=== PATIENT | male | born 1995 | race Caucasian/White ===

== ENCOUNTER 2018-03-03 20:00 | Emergency (ER) | payer MEDICAID ==
[2018-03-03 20:00] VITALS: BMI 27.4
--- NOTE | 2018-03-03 21:42 | ED PDOC ---
Arrival/HPI <Mane Aleman - Last Filed: 03/03/18 21:46> - General Historian: Patient - History of Present Illness Time/Duration: > week Symptom Onset: Gradual Symptom Course: Worsening Quality: Throbbing <Nicolle Cook - Last Filed: 03/03/18 22:17> - General Chief Complaint: Lower Extremity Problem/Injury Time Seen by Provider: 03/03/18 20:42 - History of Present Illness Narrative History of Present Illness (Text): 03/03/18 22:03 22-year-old male presents today with a 2 week history of left great toe pain/ ingrown toenail. Patient states he has a history of recurrent ingrown toenails on this left great toe and states he has had a foot doctor cut the nail twice. Patient denies fevers or chills. He denies trauma or injury. He denies numbness weakness or tingling in the extremity. He is complaining of pain along the lateral aspect/lateral cuticle of the toe. No medications have been taken for pain at home. Patient states she tried to get an appointment with his foot doctor but they did not have an appointment until next Sunday. No other complaints (Nicolle Cook) Past Medical History - Provider Review Nursing Documentation Reviewed: Yes - Travel History Have you recently traveled outside [place] w/in the past 3 mons?: No - Past History Past History: No Previous - Infectious Disease Hx of Infectious Diseases: None - Cardiac Hx Cardiac Disorders: No - Psychiatric Hx Depression: Yes Hx Substance Use: No Other/Comment: ADHD - Past Surgical History Past Surgical History: No Previous - Anesthesia Hx Anesthesia: No - Suicidal Assessment Feels Threatened In Home Enviroment: No <Nicolle Cook - Last Filed: 03/03/18 22:17> Family/Social History - Physician Review Nursing Documentation Reviewed: Yes Family/Social History: Unknown Family HX Smoking Status: Unknown If Ever Smoked Hx Alcohol Use: No Hx Substance Use: No <Nicolle Cook - Last Filed: 03/03/18 22:17> Allergies/Home Meds <Mane Aleman - Last Filed: 03/03/18 21:46> <Nicolle Cook - Last Filed: 03/03/18 22:17> Allergies/Adverse Reactions: Allergies Sulfa (Sulfonamide Antibiotics) Allergy (Verified 03/03/18 20:23) RASH Home Medications: Home Meds Medication Instructions Recorded Confirmed Lisdexamfetamine Dimesylate 50 mg PO DAILY 09/21/13 03/03/18 [Vyvanse] ARIPiprazole [Abilify] 10 mg PO DAILY 03/03/18 03/03/18 Escitalopram Oxalate [Lexapro] 5 mg PO DAILY 03/03/18 03/03/18 Review of Systems - Review of Systems Constitutional: absent: Fatigue, Fevers Respiratory: absent: SOB, Cough Cardiovascular: absent: Chest Pain, Palpitations Gastrointestinal: absent: Abdominal Pain, Nausea, Vomiting Musculoskeletal: Arthralgias Neurological: absent: Headache, Dizziness Psychiatric: absent: Anxiety, Depression <Nicolle Cook - Last Filed: 03/03/18 22:17> Physical Exam Vital Signs Reviewed: Yes Temperature: Afebrile Blood Pressure: Normal Pulse: Regular Respiratory Rate: Normal Appearance: Positive for: Well-Appearing, Non-Toxic, Comfortable Pain Distress: None Mental Status: Positive for: Alert and Oriented X 3 - Systems Exam Head: Present: Atraumatic Neck: Present: Normal Range of Motion Respiratory/Chest: Present: Clear to Auscultation Cardiovascular: Present: Regular Rate and Rhythm Lower Extremity: Present: Normal ROM, Tenderness (left great toe; + edema noted to the lateral cuticle with small amount of purulent discharge noted; no surrounding erythema; full rom of toe. sensation and distal pulses intact. cap refill <2. ), Swelling, Neurovascularly Intact, Capillary Refill < 2 s. No: Erythema, Deformity Neurological: Present: GCS=15, Speech Normal Skin: Present: Warm, Dry, Normal Color Psychiatric: Present: Alert, Oriented x 3 <Nicolle Cook - Last Filed: 03/03/18 22:17> Vital Signs Temp Pulse Resp BP Pulse Ox 03/03/18 20:18 98.5 F 94 H 18 150/85 98 03/03/18 20:00 98.5 F 94 H 18 150/85 98 Medical Decision Making <Mane Aleman - Last Filed: 03/03/18 21:46> <Nicolle Cook - Last Filed: 03/03/18 22:17> ED Course and Treatment: 03/03/18 22:15 22-year-old male with a 2 week history of left great toe ingrown toenail. Patient given Keflex by mouth and Motrin for pain. Patient was advised follow-up with the canine deputy within the next 2 days. He was advised warm soaks. He was advised to apply she will antibiotics ointment to the affected area. Patient was advised immediate return if symptoms worsen persist or if new concerning symptoms develop Patient verbalizes understanding of discharge instructions and need for immediate followup. all aspects of this case were discussed the attending of record. Impression:ingrown toe nail Motrin every 6 hours as needed for pain Keflex one capsule 4 times daily 7 days Warm soaks frequently Follow-up with the canine deputy within the next 2 days Follow-up with primary care physician within the next 2 days Return if symptoms worsen persist or if new concerning symptoms develop (Nicolle Cook) - Medication Orders Current Medication Orders: Discontinued Medications Cephalexin Monohydrate (Keflex) 500 mg PO STAT STA PRN Reason: Protocol Stop: 03/03/18 21:38 Last Admin: 03/03/18 21:55 Dose: 500 mg Ibuprofen (Motrin Tab) 600 mg PO STAT STA Stop: 03/03/18 21:38 Last Admin: 03/03/18 21:54 Dose: 600 mg MAR Pain/Vitals Document 03/03/18 21:54 GMI (Rec: 03/03/18 21:55 GMI [id number]) Pain Reassessment Is This A Pain ReAssessment? Yes Sleep Is patient sleeping during reassessment? No Presence of Pain Presence of Pain Yes Pain Scale Used Pain Scale Used Numeric Location Left, Right or Bilateral Left Pain Location Body Site Big Toe Description Throbbing Intensity 2 Scale Used Numeric Pain Behavior Facial Grimacing Alleviating Factors Medication - PA / FACILITY DESIGNER / Resident Statement MD/DO has reviewed & agrees with the documentation as recorded. <Mane Aleman - Last Filed: 03/03/18 21:46> Disposition/Present on Arrival <Mane Aleman - Last Filed: 03/03/18 21:46> - Present on Arrival Any Indicators Present on Arrival: No History of DVT/PE: No History of Uncontrolled Diabetes: No Urinary Catheter: No History of Decub. Ulcer: No History Surgical Site Infection Following: None - Disposition Have Diagnosis and Disposition been Completed?: Yes Disposition Time: 21:30 Patient Plan: Discharge <Nicolle Cook - Last Filed: 03/03/18 22:17> - Disposition Diagnosis: Ingrown toenail Disposition: HOME/ ROUTINE Patient Problems: Current Active Problems Problem Status Onset Ingrown toenail Acute Condition: GOOD Discharge Instructions (ExitCare): Ingrown Toenail (DC) Additional Instructions: Motrin every 6 hours as needed for pain Keflex one capsule 4 times daily 7 days Warm soaks frequently Follow-up with the canine deputy within the next 2 days Follow-up with primary care physician within the next 2 days Return if symptoms worsen persist or if new concerning symptoms develop Prescriptions: Cephalexin [Keflex] 500 mg PO QID #28 capsule Ibuprofen [Motrin] 600 mg PO Q6H PRN #20 tab PRN Reason: pain/fever reduction Referrals: Gunjan Matias MD [Primary Care Provider] - Follow up with primary Soy Sanchez DPM [Staff Provider] - Follow up with primary Allen Jerez DPM [Staff Provider] - Follow up with primary [facility] [Outside] - Follow up with primary Forms: [employer] ([place]), WORK NOTE
[2018-03-03 22:05] VITALS: BP 130/72; PULSE 85; RESP 19; TEMP 98; O2SAT 100
== END 2018-03-03 22:05 | disposition home or self-care (01) ==
LOC: ED 20:00
DX: L60.0 Ingrowing nail (principal)